=== PATIENT | male | born 1960 | race Caucasian/White ===

== ENCOUNTER 2022-04-21 08:51 | Outpatient (REF) | payer BC, SELFPAY ==
[2022-04-21 09:07] LABS: MANUAL DIFF FLAG NO
[2022-04-21 09:20] LABS: Basophils Percent Auto 0.3 % (0-2); Eosinophils Absolute Auto 0.2 X10*3/uL (0.0-0.4); Eosinophils Percent Auto 3.1 % (0-4); Hematocrit 44.9 % (42.0-52.0); Hemoglobin 15.3 g/dl (14.0-18.0); Imm Gran Abs Auto 0.02 X10*3/uL (0.00-0.03); Imm Gran Pct Auto 0.3 % (0.0-0.4); Lymphocytes Absolute Auto 1.5 X10*3/uL (1.2-4.9); Lymphocytes Percent Auto 25.6 % (20-40); Mean Corpuscular HGB Conc 34.1 g/dl (31.0-36.0); Mean Corpuscular Hemoglobin 31.5 pg (27.0-33.0); Mean Corpuscular Volume 92.6 fL (80.0-98.0); Mean Platelet Volume 9.3 fL (9.4-12.4); Monocytes Absolute Auto 0.5 X10*3/uL (0.1-1.2); Monocytes Percent Auto 7.7 % (2-11); Neutrophils Absolute Auto 3.7 x10*3/uL (2.0-8.3); Platelet Count 256 X10*3/uL (160-400); Red Blood Count 4.85 X10*6/uL (4.60-5.80); Red Cell Distribution Width 12.4 % (11.0-16.0); White Blood Count 5.8 X10*3/uL (4.8-10.8)
[2022-04-21 09:53] LABS: Alanine Aminotransferase 21 U/L (0-40); Albumin Level 4.2 g/dL (3.5-5.0); Alkaline Phosphatase 36 U/L (39-117); Anion Gap 12 (12-20); Aspartate Amino Transferase 18 U/L (5-37); Bilirubin Total 0.6 mg/dL (0.0-1.0); Blood Urea Nitrogen 15 mg/dL (9-16); Calcium 9.2 mg/dL (8.4-10.2); Carbon Dioxide 27 mmol/L (22-29); Chloride 108 mmol/L (96-108); Cholesterol 186 mg/dL; Estimated Glomerular Filt Rate > 60; Glucose Random 103 mg/dL (60-115); HDL Cholesterol 54 mg/dL; LDL Cholesterol Calculated 119 mg/dl; Sodium 142 mmol/L (135-145); Total Protein 6.7 g/dL (6.5-8.0); Triglycerides 65 mg/dL
[2022-04-21 10:14] LABS: Prostate Specific Antigen Scr 2.01 ng/mL (<0.05-4.0); Thyroid Stimulating Hormone 1.39 uIU/mL (0.32-4.0)
== END 2022-04-21 08:52 | disposition home or self-care (01) ==
LOC: HO.LAB 08:51
PROVIDERS: PCP Internal Medicine; Visit Provider Internal Medicine
DX: E78.00 Pure hypercholesterolemia, unspecified (principal); K21.9 Gastro-esophageal reflux disease without esophagitis; Z12.5 Encounter for screening for malignant neoplasm of prostate
CPT/HCPCS: 36415; 80053; 80061; 84153; 84443; 85025

== ENCOUNTER 2023-08-08 06:21 | Outpatient (REF) | payer BC, SELFPAY ==
[2023-08-08 06:38] LABS: MANUAL DIFF FLAG NO
[2023-08-08 07:44] LABS: Basophils Percent Auto 0.5 % (0-2); Eosinophils Absolute Auto 0.3 X10*3/uL (0.0-0.4); Hematocrit 41.1 % (42.0-52.0); Hemoglobin 14.6 g/dl (14.0-18.0); Imm Gran Abs Auto 0.01 X10*3/uL (0.00-0.03); Imm Gran Pct Auto 0.2 % (0.0-0.4); Lymphocytes Absolute Auto 1.6 X10*3/uL (1.2-4.9); Lymphocytes Percent Auto 28.8 % (20-40); Mean Corpuscular HGB Conc 35.5 g/dl (31.0-36.0); Mean Corpuscular Hemoglobin 32.5 pg (27.0-33.0); Mean Corpuscular Volume 91.5 fL (80.0-98.0); Mean Platelet Volume 9.5 fL (9.4-12.4); Monocytes Absolute Auto 0.5 X10*3/uL (0.1-1.2); Monocytes Percent Auto 8.3 % (2-11); Neutrophils Absolute Auto 3.2 x10*3/uL (2.0-8.3); Neutrophils Percent Auto 57.2 % (45-73); Platelet Count 255 X10*3/uL (160-400); Red Blood Count 4.49 X10*6/uL (4.60-5.80); Red Cell Distribution Width 12.9 % (11.0-16.0); White Blood Count 5.6 X10*3/uL (4.8-10.8)
[2023-08-08 07:47] LABS: Appearance Urine Clear; Color Urine Yellow; Glucose Urine UA Negative (Negative); Leukocyte Esterase Urine Negative (Negative); Nitrite Urine Negative (Negative); PH 6.5 (5.0-9.0); Urine Blood Negative (Negative); Urine Ketones Negative (Negative); Urine Protein Negative (Neg-Trace)
[2023-08-08 07:54] LABS: Estimated Average Glucose 105 mg/dL; Hemoglobin A1c % 5.3 % (<6.0)
[2023-08-08 08:28] LABS: Alanine Aminotransferase 21 U/L (0-40); Albumin Level 4.3 g/dL (3.5-5.0); Alkaline Phosphatase 39 U/L (39-117); Anion Gap 9 (12-20); Aspartate Amino Transferase 21 U/L (5-37); Bilirubin Total 0.5 mg/dL (0.0-1.0); Blood Urea Nitrogen 19 mg/dL (9-16); Calcium 9.3 mg/dL (8.4-10.2); Carbon Dioxide 26 mmol/L (22-29); Chloride 107 mmol/L (96-108); Cholesterol 184 mg/dL (<200); Estimated Glomerular Filt Rate > 60; Glucose Random 99 mg/dL (60-115); HDL Cholesterol 55 mg/dL (>40); LDL Cholesterol Calculated 113 mg/dL (<100); Potassium 4.4 mmol/L (3.3-5.1); Sodium 138 mmol/L (135-145); Total Protein 6.8 g/dL (6.5-8.0); Triglycerides 82 mg/dL (<150)
[2023-08-08 08:40] LABS: Prostate Specific Antigen Scr 2.22 ng/mL (<0.05-4.0)
[2023-08-08 08:50] LABS: TSH reflex Free T4 1.17 uIU/mL (0.32-4.0)
== END 2023-08-08 06:22 | disposition home or self-care (01) ==
LOC: HO.LAB 06:21
PROVIDERS: PCP Internal Medicine; Visit Provider Internal Medicine
DX: E78.00 Pure hypercholesterolemia, unspecified (principal); K21.9 Gastro-esophageal reflux disease without esophagitis; Z12.5 Encounter for screening for malignant neoplasm of prostate; R35.1 Nocturia
CPT/HCPCS: 36415; 80053; 80061; 81003; 83036; 84153; 84443; 85025

== ENCOUNTER 2023-09-13 07:42 | Emergency (ER) | payer BC, SELFPAY ==
--- NOTE | ~2023-09-13 | XR_ITS ---
EXAMINATION: XR CHEST CLINICAL INFORMATION: Shortness of breath COMPARISON: None available. TECHNIQUE: 2 views of the chest were obtained. FINDINGS: No significant abnormality is noted involving the heart, lungs, mediastinum, bony thorax or soft tissues. XR/XR chest 2V IMPRESSION: Unremarkable examination.
[2023-09-13 07:47] VITALS: BP 123/85; PULSE 85; RESP 16; TEMP 36.4; O2SAT 100; BMI 31.4
--- NOTE | 2023-09-13 09:07 | ED.GENADULT ---
HPI - General Adult General Chief complaint: Upper Respiratory Symptoms Stated complaint: Cough, recent covid Time Seen by Provider: 09/13/23 09:07 Source: patient Mode of arrival: ambulatory Limitations: no limitations History of Present Illness ED Provider: Elli Murillo PA-C HPI narrative: A 63-year-old male with a history of HLD presents to the emergency room complaining of a cough with green sputum production. He tested positive for COVID-19 one week ago and notes a recurrence of green sputum after initially clearing up. He describes chest pressure, congestion, and pain only after coughing. Denies radiation, jaw/arm pain, tingling, numbness, and palpitations. Yesterday, while mowing his lawn, he experienced weakness in his legs, prompting him to stop and return indoors without completing the task. This morning, he woke up with shortness of breath, which has since resolved. He denies sore throat, headache, vision changes, fever, chills, nausea, vomiting, and abdominal pain. Reports nyquil and dayquil help relieve symptoms. Took benzonatate this AM with minimal relief. MD complaint: productive cough, sob Onset (ago): week(s) (1) Location: chest Radiation: non-radiation Severity: mild Quality: other (sore w/ coughing) Pain Consistency: intermittent Relieving factors: rest Exacerbating factors: other (coughing) Associated symptoms: malaise, shortness of breath and weakness Treatments prior to arrival: other (tessalon) Related Data Previous Rx's ?Medication ?Instructions ?Recorded albuterol sulfate 90 mcg/actuation 1 inh inhalation QID PRN shortness 09/13/23 aerosol inhaler of breath or wheezing #6.7 grams hydrocodone-homatropine 5 mg-1.5 5 ml PO Q6H PRN cough #60 mL 09/13/23 mg/5 mL (5 mL) oral syrup (Hycodan) Allergies Allergy/AdvReac Type Severity Reaction Status Date / Time No Known Allergies Allergy Verified 09/13/23 07:49 [No Known Allergies*] Review of Systems Constitutional: Constitutional: Reports as per HPI Eyes: Eyes: Reports as per HPI ENT: Reports as per HPI Cardiovascular: Cardiovascular: Reports as per HPI Respiratory: Respiratory: Reports as per HPI Genitourinary: Genitourinary: Reports as per HPI Musculoskeletal: Musculoskeletal: Reports as per HPI Integumentary/Breasts: Skin/Breast: Reports as per HPI Neurologic: Reports as per HPI Psychiatric: Psychiatric: Reports as per HPI Endocrine: Endocrine: Reports as per HPI Hematologic/Lymphatic: Hematologic/Lymphatic: Reports as per HPI Allergic/Immunologic: Allergic/Immunologic: Reports as per HPI [facility] Social History Social History Advance Directives: No Advance Directives Information Provided: No Do you have a plan to hurt others: No Plan Physical Exam ED Vital Signs: Vital Signs - 24 hr 09/13/23 07:47 Temperature 97.6 F Pulse Rate 85 Respiratory Rate 16 Blood Pressure 123/85 Pulse Oximetry 100 Oxygen Delivery Method Room Air BMI result Body Mass Index 31.4 Appearance: Alert. Oriented X3. No acute distress. Head: normocephalic, atraumatic. Eyes: Pupils equal, round and reactive to light. ENT: Pharynx normal. No tonsillar swelling or exudate. Neck: Normal inspection. Neck supple. CVS: Normal heart rate and rhythm. Pulses normal. Respiratory: No respiratory distress. Breath sounds normal. Abdomen: Soft and nontender. +BS x4 Skin: Skin warm and dry. Normal skin color. Normal skin turgor. No rashes. Extremities: No lower extremity edema. No joint swelling. Neuro/psych: Oriented X 3. No motor deficit. No sensory deficit. CN II-XII intact. Normal speech and cognition. Medical Decision Making Medical Decision Making MDM Narrative: A 63-year-old male with a history of HLD presents to the ER due to 1 week history of cough and green sputum production. On arrival, he is hemodynamically stable and shows no signs of acute distress. Physical examination is unremarkable; the patient appears non-toxic and comfortable. Given the sinus rhythm on EKG and absence of chest pain, palpitations, or prior cardiac events, suspicion for acute coronary syndrome is low. The chest pain occurring only after coughing is more consistent with costochondritis. I also have low suspicion for pneumonia; the patient shows no respiratory distress, has normal respiratory effort and clear lung sounds on auscultation, without rales, crackles, wheezing, or rhonchi. History and physical exam findings are consistent with bronchitis due to a cough lasting over 5 days, has tested positive for CIVD-19 1 week ago, and at this time he has no fever, chills, sore throat, or signs of bacterial URI. The plan is to discharge the patient with instructions to continue benzonatate, acetaminophen, and NSAIDs as needed, and to rest and maintain hydration. An inhaler and a prescription for Hycodan have been sent to the pharmacy. The patient has been informed about return precautions and he has a clear understanding. Differential Diagnosis Differential Diagnoses: The differential diagnosis associated with the presentation includes Bronchitis, COVID 19, influenza A/B, common cold, seasonal allergies, pneumonia, costocondiritis, GERD, low suspcision ACS, pericarditits, myocarditis Admission/Observation Consideration of admission/observation: Escalation of care including admission/observation considered elderly male w/ SOB, chest pain, considered obs however he is stable for outpatient management Independent Interpretation I performed an independent interpretation of an: EKG and Plain X-Ray Interpretation: cxr without infiltrate of effusion ekg w/ normal sinus rhythm, hr 78 bpm, no st segment elevations or depressions, normal WI interval, normal QTc Radiology Impression Discussion of test interpretation with radiology: I have reviewed the radiologist's reading. Radiologist Impression: EXAMINATION: XR CHEST CLINICAL INFORMATION: Shortness of breath COMPARISON: None available. TECHNIQUE: 2 views of the chest were obtained. FINDINGS: No significant abnormality is noted involving the heart, lungs, mediastinum, bony thorax or soft tissues. XR/XR chest 2V IMPRESSION: Unremarkable examination. Tests considered The following testing was considered but not selected: troponin was considerd, however low clinical suspicion for ACS Prescription Management I considered prescription management with: Pain Medication, Antiviral and Antibiotic Chronic Conditions Patient?s care impacted by: Other (HLD) Critical Care Time Critical Care Time Critical Care Time: No Discharge Plan Discharge Clinical Impression: COVID-19 Patient Disposition: Home, Self-Care Instructions: Covid-19 Viral Syndrome and Novel Coronavirus (ED) Hey/Ath Additional Instructions: Your chest x-ray, EKG, exam and oxygen levels were normal. Continue Advil for aches and pains. Continue Tessalon for cough. Take the prescribed cough syrup to help with cough at nighttime. Do not drive after taking this medication as it has a narcotic in it. Rest. Drink plenty of fluids. Take over the counter cold/flu medications as needed for your symptoms. If you develop new or worsening symptoms call 911 or come back to the ER for further evaluation. Prescriptions: New hydrocodone-homatropine [Hycodan] 5-1.5 mg/5 mL (5 mL) syrup 5 ml PO Q6H PRN (Reason: cough) Qty: 60 0RF Rx Instructions: Partial Fill upon patient request. albuterol sulfate 90 mcg/actuation HFA aerosol inhaler 1 inh inhalation QID PRN (Reason: shortness of breath or wheezing) Qty: 6.7 0RF Referrals: Gallito Phillips MD [Primary Care Provider] - Print Language: Syriac
--- NOTE | 2023-09-13 09:21 | ECG_ITS ---
Test Reason : chest pain Blood Pressure : / mmHG Vent. Rate : 074 BPM Atrial Rate : 074 BPM P-R Int : 154 ms QRS Dur : 098 ms QT Int : 356 ms P-R-T Axes : 056 021 019 degrees QTc Int : 395 ms Normal sinus rhythm Normal ECG When compared with ECG of 29-JUN-2012 00:50, No significant change was found Referred By: Meghana Murillo Electronically Signed By:OSWALDO BARRERA MD
[2023-09-13 10:45] VITALS: BP 127/85; PULSE 85; RESP 16; TEMP 36.4; O2SAT 100
== END 2023-09-13 10:45 | disposition home or self-care (01) ==
PROVIDERS: Emergency Provider Emergency Medicine Emergency Medical Services; PCP Internal Medicine
DX: U07.1 COVID-19 (principal); R06.02 Shortness of breath; R05.9 Cough, unspecified
CPT/HCPCS: 71046; 93005; 99283; 99284

== ENCOUNTER → 2023-09-13 09:21 | Outpatient (BNV) | payer BC, SELFPAY | PROVIDERS: Emergency Provider Emergency Medicine Emergency Medical Services; PCP Internal Medicine; Visit Provider Internal Medicine Cardiovascular Disease | DX: R07.9 Chest pain, unspecified (principal) | CPT/HCPCS: 93010 ==

== ENCOUNTER 2024-10-20 09:30 | Outpatient (REF) | payer BC, SELFPAY ==
[2024-10-20 09:44] LABS: MANUAL DIFF FLAG NO
[2024-10-20 10:13] LABS: Hematocrit 41.7 % (42.0-52.0); Hemoglobin 14.9 g/dl (14.0-18.0); Imm Gran Abs Auto 0.02 X10*3/uL (0.00-0.03); Imm Gran Pct Auto 0.4 % (0.0-0.4); Lymphocytes Absolute Auto 1.4 X10*3/uL (1.2-4.9); Mean Corpuscular HGB Conc 35.7 g/dl (31.0-36.0); Mean Corpuscular Hemoglobin 32.2 pg (27.0-33.0); Mean Corpuscular Volume 90.1 fL (80.0-98.0); NRBC Abs Auto 0.000 X10*3/uL (0.0-0.012); NRBC Pct Auto 0.0 /100WBC (0.0-0.2); Platelet Count 224 X10*3/uL (160-400); Red Blood Count 4.63 X10*6/uL (4.60-5.80); White Blood Count 5.1 X10*3/uL (4.8-10.8)
--- OUTSIDE RECORDS SUMMARY | 2024-10-20 10:19 | XMS_ITS | Encounter Summary ---
Author Organization [facility] Address [address] [place] [id number] Phone Care Team Providers Care Director Of Digital Technology Name Role Phone Gallito Phillips MD Primary Care Provider [phone] Gallito Phillips MD Unavailable [phone] Junaid Metz MD Unavailable [phone] Reason for Visit * Reason Onset Date Comments Move up appt 10/16/2024 Encounter Details Date Type Department Care Team (Late st Contact Info) Description 10/16/2024 Telephone [facility] Internal Medicine [address], [place] [id number] Gallito Phillips MD [address], [place] [id number] [email or web address] Move up appt Social History Tobacco Use Types Packs/Day Years Used Date Smoking Tobacco: Never Smokeless Tobacco: Never Alcohol Use Standard Drinks/Week Comments Yes 10 (1 standard drink = 0.6 oz pu re alcohol) Child or Family Care Answer Date Record ed Do you have problems with on e of the following making it difficult for you to work, study, or receive health care? No 10/20/2024 Education Answer Date Recorded Are you interested in help w ith more adult education (for example, completing high school, GED, job training, learning the [place] language, technical skills, or developing parenting skills)? No 08/06/2023 Are you concerned about learning? Not on file 08/06/2023 No 08/06/2023 Yes 08/06/2023 Food Answer Date Recorded Within the past 6 months we worried whether our food would run out before we got money to buy more. Never True 10/20/2024 Within the past 6 months the food we bought just didn't last and we didn't have enough money to get more. Never True Residential Stability Answer Date Recor ded What is your housing situation today? I have karime sing 10/20/2024 How many times have you move d in the past 12 months? Zero (I did not move) 10/20/2024 Paying for Meds Answer Date Recorded Do you have trouble paying for medicines? No 10/20/2024 Paying Utility Bills Answer Date Record ed Do you have trouble paying your heating or elect ricity bill? No 10/20/2024 Transportation Answer Date Recorded Has the lack of transportati on kept you from medical appointments or from getting medications? No 10/20/2024 Unemployment Answer Date Recorded Are you currently unemployed or working on a part-time or temporary basis, and looking for work? No 04/24/2022 Digital Access Answer Date Recorded No 10/20/2024 Yes 10/20/2024 Do you have reliable internet access at home? Ye s 10/20/2024 Do you have a device (e.g., phone, tablet, computer) with a working camera? Yes 10/20/2024 Intimate Partner Violence Answer Date R ecorded Denied Basic Needs Not on file 08/06/2023 In the past 12 months have y ou been in a relationship with a person who hurts, threatens, or tries to control you? No 08/06/2023 Worried food would run out Not on file 08/05 In the past 12 months have y ou been in a relationship with a person who hurts, threatens, or tries to control you? No 08/06/2023 Sex and Gender Information Value Date Recorded Sex Assigned at Not on file Legal Sex Male 9:50 PM EDT Gender Identity Not on file Sexual Orientation Not on file documented as of this encounter Progress Notes * Josué Moore - 10/20/2024 9:19 AM EDT Patient asked labs be faxed to [facility]. Faxed as requested * Josué Moore - 10/17/2024 8:45 PM EDT Portal message sent to patient. * Gallito Phillips MD - 10/17/2024 7:12 PM EDT Labs placed please let patient know. * Josué Moore - 10/16/2024 10:26 AM EDT Patient rescheduled to Tuesday October 22, 2024. He would like to know if provider would like him to do labs prior. He would go to [facility] for these. Please advise. * Josué Moore - 10/16/2024 9:06 AM EDT Left voicemail for patient to move up appt to next week where provider has openings. Send call to [facility] documented in this encounter Plan of Treatment Upcoming Encounters Date Type Department Care Team (Late st Contact Info) Description 10/22/2024 10:00 AM EDT Office Visit [facility] Internal [facility] [address] [place] [address] Gallito Phillips MD [address] [place] [address] Scheduled Orders Name Type Priority Associated Diagnoses Orde r Schedule Lipid panel Lab Routine Pure hypercholesterolemia Expected: 10/17/2024, Expires: 10/17/2025 CBC and differential Lab Routine Gastroesophageal reflux disease, unspecified whether esophagitis present Primary osteoarthritis of right hand Expected: 10/17/2024, Expires: 10/17/2025 Comprehensive metabolic panel Lab Routine Pure hypercholesterolemia Gastroesophageal reflux disease, unspecified whether esophagitis present Primary osteoarthritis of right hand Expected: 10/17/2024, Expires: 10/17/2025 TSH Lab Routine Pure hypercholesterolemia Expected: 10/17/2024, Expires: 10/17/2025 Hemoglobin A1c Lab Routine Impaired fasting glucose Expected: 10/17/2024, Expires: 10/17/2025 Urinalysis Lab Routine Nocturia Expected: 10/18/2024, Expires: 01/17/2025 documented as of this encounter Visit Diagnoses Diagnosis Pure hypercholesterolemia- Primary Impaired fasting glucose Gastroesophageal reflux disease, unspecified whether esophagitis present Primary osteoarthritis of right hand Nocturia documented in this encounter Additional Health Concerns Assessment Noted Time PHQ-2 Depression Total Score: 0 08/06/19 24 11:16 AM EDT documented as of this encounter Care Teams Director Of Digital Technology Relationship Specialty Start Date End Date Gallito Phillips MD [address] [place] [address] [email or web address] PCP - General Internal Medicine 01/02/17 Gallito Phillips MD [address] [place] [address] [email or web address] Insurance Assigned Provider 06/02/23 Junaid Metz MD [address] [place] [id number] Gastroenterology 03/15/22 documented as of this encounter Additional Source Comments The information contained in this document represents components of the legal health record. It is not the complete legal health record.[facility]
[2024-10-20 10:46] LABS: Appearance Urine Clear; Glucose Urine UA Negative (Negative); PH 5.5 (5.0-9.0); Specific Gravity - Urine 1.020 (1.005-1.025)
[2024-10-20 10:49] LABS: Hemoglobin A1C 144.4199 umol/L; Total Hemoglobin (HGBA1C) 3983.8160 umol/L
[2024-10-20 11:04] LABS: Alanine Aminotransferase 23 U/L (0-40); Albumin Level 4.8 g/dL (3.5-5.0); Alkaline Phosphatase 45 U/L (39-117); Anion Gap 14 (12-20); Aspartate Amino Transferase 25 U/L (5-37); Blood Urea Nitrogen 20 mg/dL (9-16); Calcium 9.5 mg/dL (8.4-10.2); Carbon Dioxide 25 mmol/L (22-29); Chloride 106 mmol/L (96-108); Cholesterol 198 mg/dL (<200); Estimated Glomerular Filt Rate > 60; HDL Cholesterol 64 mg/dL (>40); Potassium 4.6 mmol/L (3.3-5.1); Sodium 140 mmol/L (135-145); Thyroid Stimulating Hormone 1.25 uIU/mL (0.32-4.0); Total Protein 7.6 g/dL (6.5-8.0); Triglycerides 63 mg/dL (<150)
== END 2024-10-20 09:31 | disposition home or self-care (01) ==
LOC: HO.LAB 09:30
PROVIDERS: PCP Internal Medicine; Visit Provider Internal Medicine
DX: M19.041 Primary osteoarthritis, right hand (principal); K21.9 Gastro-esophageal reflux disease without esophagitis; E78.00 Pure hypercholesterolemia, unspecified; R73.01 Impaired fasting glucose; R35.1 Nocturia
CPT/HCPCS: 36415; 80053; 80061; 81001; 83036; 84443; 85025